=== PATIENT | female | born 1975 | race Caucasian/White ===

== ENCOUNTER → 2016-09-11 | Outpatient (REF) | payer OTHER ==
[2016-09-11 18:49] LABS: MEAN CORPUSCULAR HEMOGLOBIN 24.1 pg (27.0-33.0); MEAN CORPUSCULAR HGB CONC 30.9 g/dl (32.0-36.5); MEAN CORPUSCULAR VOLUME 77.8 fl (80.0-96.0); RED CELL DISTRIBUTION WIDTH 16.7 % (11.5-14.5); WHITE BLOOD COUNT 10.6 K/mm3 (4.0-10.0)
[2016-09-11 19:11] LABS: ALBUMIN 3.4 GM/DL (3.2-5.2); ALBUMIN/GLOBULIN RATIO 1.03 (1.00-1.93); ALKALINE PHOSPHATASE 74 U/L (45-117); ALT/SGPT 18 U/L (12-78); ANION GAP 9 MEQ/L (8-16); AST/SGOT 10 U/L (15-37); BILIRUBIN,TOTAL 0.2 MG/DL (0.2-1.0); BLOOD UREA NITROGEN 13 MG/DL (7-18); CALCIUM LEVEL 8.4 MG/DL (8.5-10.1); CARBON DIOXIDE LEVEL 25 MEQ/L (21-32); CHLORIDE LEVEL 107 MEQ/L (98-107); CHOLESTEROL LEVEL 195 MG/DL (<200); CREATININE FOR GFR 0.86 MG/DL (0.55-1.02); FREE T4 1.09 NG/DL (0.76-1.46); GLOMERULAR FILTRATION RATE > 60.0 (>58); GLUCOSE, FASTING 92 MG/DL (70-105); POTASSIUM SERUM 4.3 MEQ/L (3.5-5.1); SODIUM LEVEL 141 MEQ/L (136-145); TOTAL PROTEIN 6.7 GM/DL (6.4-8.2); TRIGLYCERIDES LEVEL 181 MG/DL (<150)
== END ==
LOC: M LABDRAW1 17:05
PROVIDERS: ATTEND Nurse Practitioner Family
DX: E55.9 Vitamin D deficiency, unspecified (principal); E78.5 Hyperlipidemia, unspecified; E03.9 Hypothyroidism, unspecified

== ENCOUNTER → 2016-09-27 | Outpatient (REF) | payer OTHER ==
[2016-09-27 19:48] LABS: MEAN CORPUSCULAR HEMOGLOBIN 23.8 pg (27.0-33.0); MEAN CORPUSCULAR HGB CONC 30.2 g/dl (32.0-36.5); MEAN CORPUSCULAR VOLUME 78.6 fl (80.0-96.0); RED CELL DISTRIBUTION WIDTH 16.1 % (11.5-14.5); WHITE BLOOD COUNT 9.5 K/mm3 (4.0-10.0)
== END ==
LOC: M LABDRAW1 17:40
PROVIDERS: ATTEND Nurse Practitioner Family
DX: D64.9 Anemia, unspecified (principal)

== ENCOUNTER → 2016-11-30 | Outpatient (REF) | payer OTHER | LOC: M LAB REF 12:00 | PROVIDERS: ATTEND Obstetrics & Gynecology | DX: N93.9 Abnormal uterine and vaginal bleeding, unspecified (principal) ==

== ENCOUNTER → 2017-03-08 | Outpatient (REF) | payer OTHER ==
[2017-03-08 11:56] LABS: MEAN CORPUSCULAR HEMOGLOBIN 21.8 pg (27.0-33.0); MEAN CORPUSCULAR HGB CONC 29.4 g/dl (32.0-36.5); RED CELL DISTRIBUTION WIDTH 15.9 % (11.5-14.5); WHITE BLOOD COUNT 7.9 10^3/uL (4.0-10.0)
[2017-03-08 12:00] LABS: MEAN CORPUSCULAR VOLUME 73.9 fl (80.0-96.0)
[2017-03-08 13:06] LABS: ALBUMIN 3.5 GM/DL (3.2-5.2); ALBUMIN/GLOBULIN RATIO 0.97 (1.00-1.93); ALKALINE PHOSPHATASE 86 U/L (45-117); ALT/SGPT 14 U/L (12-78); ANION GAP 6 MEQ/L (8-16); AST/SGOT 7 U/L (15-37); BILIRUBIN,TOTAL 0.3 MG/DL (0.2-1.0); BLOOD UREA NITROGEN 12 MG/DL (7-18); CALCIUM LEVEL 8.2 MG/DL (8.5-10.1); CARBON DIOXIDE LEVEL 27 MEQ/L (21-32); CHLORIDE LEVEL 106 MEQ/L (98-107); CHOLESTEROL LEVEL 180 MG/DL (<200); CREATININE FOR GFR 0.75 MG/DL (0.55-1.02); FREE T4 1.07 NG/DL (0.76-1.46); GLOMERULAR FILTRATION RATE > 60.0 (>58); GLUCOSE, FASTING 114 MG/DL (70-105); POTASSIUM SERUM 4.2 MEQ/L (3.5-5.1); SODIUM LEVEL 139 MEQ/L (136-145); TOTAL PROTEIN 7.1 GM/DL (6.4-8.2); TRIGLYCERIDES LEVEL 96 MG/DL (<150)
== END ==
LOC: M LABDRAW1 10:36
PROVIDERS: ATTEND Nurse Practitioner Family
DX: I10 Essential (primary) hypertension (principal)

== ENCOUNTER → 2017-03-22 | Outpatient (REF) | payer OTHER | LOC: M LAB REF 17:54 | PROVIDERS: ATTEND Obstetrics & Gynecology | DX: Z12.4 Encounter for screening for malignant neoplasm of cervix (principal) ==

== ENCOUNTER → 2017-07-03 | Outpatient (REF) | payer OTHER ==
[2017-07-03 12:30] LABS: HEMOGLOBIN 13.7 g/dl (12.0-16.0); MEAN CORPUSCULAR HEMOGLOBIN 26.1 pg (27.0-33.0); MEAN CORPUSCULAR HGB CONC 31.9 g/dl (32.0-36.5); MEAN CORPUSCULAR VOLUME 82.1 fl (80.0-96.0); PLATELET COUNT, AUTOMATED 401 10^3/uL (150-450); RED BLOOD COUNT 5.24 10^6/uL (4.00-5.40); RED CELL DISTRIBUTION WIDTH 15.9 % (11.5-14.5); WHITE BLOOD COUNT 8.9 10^3/uL (4.0-10.0)
[2017-07-03 13:06] LABS: ALBUMIN 3.9 GM/DL (3.2-5.2); ALBUMIN/GLOBULIN RATIO 1.08 (1.00-1.93); ALKALINE PHOSPHATASE 90 U/L (45-117); ALT/SGPT 19 U/L (12-78); ANION GAP 7 MEQ/L (8-16); AST/SGOT 13 U/L (7-37); BILIRUBIN,DIRECT < 0.1 MG/DL (0.0-0.2); BILIRUBIN,TOTAL 0.2 MG/DL (0.2-1.0); BLOOD UREA NITROGEN 14 MG/DL (7-18); CALCIUM LEVEL 8.7 MG/DL (8.5-10.1); CARBON DIOXIDE LEVEL 25 MEQ/L (21-32); CHLORIDE LEVEL 107 MEQ/L (98-107); CHOLESTEROL LEVEL 184 MG/DL (<200); CHOLESTEROL RISK RATIO 4.279 (<5); CPK CREATINE PHOSPHOKINASE 78 U/L (26-192); CREATININE FOR GFR 0.71 MG/DL (0.55-1.30); FREE T4 0.97 NG/DL (0.76-1.46); GLOMERULAR FILTRATION RATE > 60.0 (>58); GLUCOSE, FASTING 102 MG/DL (70-100); HDL CHOLESTEROL 43 MG/DL (>40); LDL CHOLESTEROL 95.6 MG/DL (<100); NON-HDL-C 141 MG/DL; POTASSIUM SERUM 4.7 MEQ/L (3.5-5.1); SODIUM LEVEL 139 MEQ/L (136-145); TOTAL PROTEIN 7.5 GM/DL (6.4-8.2); TRIGLYCERIDES LEVEL 227 MG/DL (<150)
== END ==
LOC: M LAB REF 11:55
DX: I10 Essential (primary) hypertension (principal); E03.9 Hypothyroidism, unspecified; D64.9 Anemia, unspecified

== ENCOUNTER → 2017-12-17 | Outpatient (CLI) | payer OTHER | LOC: M RAD 17:05 | DX: N93.9 Abnormal uterine and vaginal bleeding, unspecified (principal); D25.2 Subserosal leiomyoma of uterus; Z97.5 Presence of (intrauterine) contraceptive device | CPT/HCPCS: 76856 ==

== ENCOUNTER → 2017-12-26 | Outpatient (REF) | payer OTHER ==
[2017-12-26 15:32] LABS: HEMATOCRIT 41.5 % (36.0-47.0); HEMOGLOBIN 13.4 g/dl (12.0-15.5); MEAN CORPUSCULAR HEMOGLOBIN 27.7 pg (27.0-33.0); MEAN CORPUSCULAR HGB CONC 32.3 g/dl (32.0-36.5); MEAN CORPUSCULAR VOLUME 85.9 fl (80.0-96.0); PLATELET COUNT, AUTOMATED 362 10^3/uL (150-450); RED BLOOD COUNT 4.83 10^6/uL (4.00-5.40); RED CELL DISTRIBUTION WIDTH 13.6 % (11.5-14.5); WHITE BLOOD COUNT 9.3 10^3/uL (4.0-10.0)
[2017-12-26 15:52] LABS: ALBUMIN 3.3 GM/DL (3.2-5.2); ALBUMIN/GLOBULIN RATIO 0.89 (1.00-1.93); ALKALINE PHOSPHATASE 76 U/L (45-117); ALT/SGPT 15 U/L (12-78); ANION GAP 5 MEQ/L (8-16); AST/SGOT 7 U/L (7-37); BILIRUBIN,TOTAL 0.3 MG/DL (0.2-1.0); BLOOD UREA NITROGEN 12 MG/DL (7-18); CALCIUM LEVEL 8.1 MG/DL (8.5-10.1); CARBON DIOXIDE LEVEL 28 MEQ/L (21-32); CHLORIDE LEVEL 108 MEQ/L (98-107); CHOLESTEROL LEVEL 174 MG/DL (<200); CHOLESTEROL RISK RATIO 3.222 (<5); CPK CREATINE PHOSPHOKINASE 54 U/L (26-192); CREATININE FOR GFR 0.72 MG/DL (0.55-1.30); FREE T4 0.95 NG/DL (0.76-1.46); GLOMERULAR FILTRATION RATE > 60.0 (>58); GLUCOSE, FASTING 91 MG/DL (70-100); HDL CHOLESTEROL 54 MG/DL (>40); LDL CHOLESTEROL 100.8 MG/DL (<100); NON-HDL-C 120 MG/DL; POTASSIUM SERUM 4.5 MEQ/L (3.5-5.1); SODIUM LEVEL 141 MEQ/L (136-145); TRIGLYCERIDES LEVEL 96 MG/DL (<150)
== END ==
LOC: M LABDRAW1 11:44
DX: E78.00 Pure hypercholesterolemia, unspecified (principal); E03.9 Hypothyroidism, unspecified; I10 Essential (primary) hypertension

== ENCOUNTER 2018-02-13 15:49 | Emergency (ER) | payer OTHER | END 2018-02-13 18:15 | disposition left against medical advice (07) | LOC: M ED 15:49 | DX: J34.89 Other specified disorders of nose and nasal sinuses (principal); I10 Essential (primary) hypertension; E05.90 Thyrotoxicosis, unspecified without thyrotoxic crisis or storm; Z79.899 Other long term (current) drug therapy; Z91.030 Bee allergy status; Z53.21 Procedure and treatment not carried out due to patient leaving prior to being seen by health care provider | CPT/HCPCS: 99282 ==

== ENCOUNTER → 2018-03-29 | Outpatient (REF) | payer OTHER ==
[2018-03-29 14:01] LABS: HEMOGLOBIN 14.1 g/dl (12.0-15.5); MEAN CORPUSCULAR HEMOGLOBIN 27.3 pg (27.0-33.0); MEAN CORPUSCULAR VOLUME 85.1 fl (80.0-96.0); PLATELET COUNT, AUTOMATED 452 10^3/uL (150-450); RED BLOOD COUNT 5.17 10^6/uL (4.00-5.40); RED CELL DISTRIBUTION WIDTH 14.4 % (11.5-14.5); WHITE BLOOD COUNT 8.9 10^3/uL (4.0-10.0)
[2018-03-29 15:41] LABS: ALBUMIN 3.9 GM/DL (3.2-5.2); ALBUMIN/GLOBULIN RATIO 1.15 (1.00-1.93); ALKALINE PHOSPHATASE 78 U/L (45-117); ALT/SGPT 14 U/L (12-78); ANION GAP 9 MEQ/L (8-16); AST/SGOT 9 U/L (7-37); BILIRUBIN,TOTAL 0.4 MG/DL (0.2-1.0); BLOOD UREA NITROGEN 14 MG/DL (7-18); CALCIUM LEVEL 8.9 MG/DL (8.5-10.1); CARBON DIOXIDE LEVEL 25 MEQ/L (21-32); CHLORIDE LEVEL 105 MEQ/L (98-107); CHOLESTEROL LEVEL 186 MG/DL (<200); CHOLESTEROL RISK RATIO 4.325 (<5); CPK CREATINE PHOSPHOKINASE 50 U/L (26-192); FREE T4 1.09 NG/DL (0.76-1.46); GLOMERULAR FILTRATION RATE > 60.0 (>58); GLUCOSE, FASTING 102 MG/DL (70-100); HDL CHOLESTEROL 43 MG/DL (>40); LDL CHOLESTEROL 110 MG/DL (<100); NON-HDL-C 143 MG/DL; POTASSIUM SERUM 4.5 MEQ/L (3.5-5.1); RHEUMATOID FACTOR QUANT < 10.0 IU/ML (<15.0); SODIUM LEVEL 139 MEQ/L (136-145); TOTAL PROTEIN 7.3 GM/DL (6.4-8.2); TRIGLYCERIDES LEVEL 166 MG/DL (<150)
[2018-03-30 14:10] LABS: ANTINUCLEAR ANTIBODIES DIRECT Negative (Negative)
== END ==
LOC: M LABDRAW1 13:35
DX: I10 Essential (primary) hypertension (principal); E78.5 Hyperlipidemia, unspecified

== ENCOUNTER 2018-04-12 07:08 | Day surgery (SDC) | payer OTHER ==
[2018-04-12] MEDS: LR 1,000 ML IV ×4 (07:30→20:12)
[2018-04-12 07:46] LABS: HEMATOCRIT 43.3 % (36.0-47.0); MEAN CORPUSCULAR HEMOGLOBIN 27.5 pg (27.0-33.0); MEAN CORPUSCULAR HGB CONC 32.3 g/dl (32.0-36.5); MEAN CORPUSCULAR VOLUME 84.9 fl (80.0-96.0); PLATELET COUNT, AUTOMATED 411 10^3/uL (150-450); RED CELL DISTRIBUTION WIDTH 14.1 % (11.5-14.5); WHITE BLOOD COUNT 10.8 10^3/uL (4.0-10.0)
[2018-04-12 08:16] LABS: CONTROL LINE HCG INT CTR LINE PRESENT; HCG, SERUM QUALITATIVE NEGATIVE (NEGATIVE)
[2018-04-12] MEDS: OLMESARTAN MEDOXOMIL 20 MG TAB (BENICAR) PO (09:00)
[2018-04-12] MEDS ORDERED: dexameTHASONE 4 MG/ML 1ML VIAL (J1100) As Ordered (09:30)
[2018-04-12] MEDS ORDERED: LIDOCAINE 2% INJ 100 MG/5 ML SDV (FOR ANES.) As Ordered (09:30)
[2018-04-12] MEDS ORDERED: KETOROLAC 60 MG/2 ML VIAL (J1885) As Ordered (09:30)
[2018-04-12] MEDS ORDERED: MIDAZOLAM INJ 2 MG/2 ML VIAL (J2250) As Ordered (09:30)
[2018-04-12] MEDS ORDERED: PROPOFOL 200 MG/20 ML VIAL As Ordered ×2 (09:30→12:01)
[2018-04-12] MEDS ORDERED: ONDANSETRON 4MG/2ML VIAL (J2405) As Ordered (09:30)
[2018-04-12] MEDS ORDERED: fentaNYL 250 MCG/5 ML INJECTION (J3010) As Ordered (09:30)
[2018-04-12] MEDS ORDERED: ROCURONIUM BROMIDE 50 MG/5 ML VIAL As Ordered ×2 (09:30→10:52)
[2018-04-12] MEDS ORDERED: HYDROmorphone HCL 2 MG/ML 1ML VIAL (J1170) As Ordered (09:30)
[2018-04-12] MEDS ORDERED: GLYCOPYRROLATE INJ 0.2 MG/ML 2 ML VIAL As Ordered ×3 (10:57→10:58)
[2018-04-12] MEDS ORDERED: NEOSTIGMINE 10 MG/10 ML VIAL (J2710) As Ordered (10:57)
[2018-04-12] MEDS: METHYLENE BLUE 0.5% (5MG/ML) 10 ML AMP (PROVAYBLUE)(Q9968 PER 1MG) As Ordered (11:14)
[2018-04-12] MEDS: BUPIVACAINE HCL 0.25% 30 ML VIAL As Ordered (12:02)
[2018-04-12] MEDS: SILVER NITRATE APPLICATOR As Ordered (12:03)
[2018-04-12] MEDS ORDERED: ceFAZolin 1GM INJ (J0690 PER 500MG) As Ordered (12:14)
[2018-04-12] MEDS ORDERED: PERCOCET 5MG/325MG TAB PO (12:15)
[2018-04-12] MEDS ORDERED: PROMETHAZINE INJ 25 MG/ML VIAL (J2550) IV (12:15)
[2018-04-12] MEDS ORDERED: ONDANSETRON 4MG/2ML VIAL (J2405) IV (12:15)
[2018-04-12] MEDS ORDERED: fentaNYL 100 MCG/2 ML INJECTION (J3010) IV (13:00)
[2018-04-12] MEDS: ONDANSETRON 4MG/2ML VIAL (J2405) IV (13:22)
[2018-04-12] MEDS: PERCOCET 5MG/325MG TAB PO ×2 (13:23→20:10)
[2018-04-12] MEDS: KETOROLAC 30 MG/ML VIAL (J1885) IV ×2 (17:49→23:39)
[2018-04-12] MEDS: DOCUSATE SODIUM 100 MG CAP PO (20:47)
[2018-04-13] MEDS: PERCOCET 5MG/325MG TAB PO ×3 (04:05→13:10)
[2018-04-13] MEDS: LR 1,000 ML IV (04:12)
[2018-04-13] MEDS: KETOROLAC 30 MG/ML VIAL (J1885) IV (04:57)
[2018-04-13] MEDS: LEVOTHYROXINE 50MCG TABLET (0.05MG) PO (06:45)
[2018-04-13 07:10] LABS: BASO % 0.2 % (0.0-1.0); HEMATOCRIT 36.2 % (36.0-47.0); IMMATURE GRANULOCYTE % 0.8 % (0-3.0); LYMPH # 2.3 10^3/uL (1.5-4.5); MEAN CORPUSCULAR HEMOGLOBIN 27.2 pg (27.0-33.0); MEAN CORPUSCULAR HGB CONC 31.5 g/dl (32.0-36.5); MEAN CORPUSCULAR VOLUME 86.4 fl (80.0-96.0); MONO % 8.1 % (0.0-5.0); NEUTROPHILS # 9.3 10^3/uL (1.8-7.7); NEUTROPHILS % 72.9 % (36.0-66.0); PLATELET COUNT, AUTOMATED 326 10^3/uL (150-450); RED BLOOD COUNT 4.19 10^6/uL (4.00-5.40); RED CELL DISTRIBUTION WIDTH 14.4 % (11.5-14.5); WHITE BLOOD COUNT 12.7 10^3/uL (4.0-10.0)
[2018-04-13 07:16] LABS: HEMOGLOBIN 11.4 g/dl (12.0-15.5)
[2018-04-13] MEDS: DOCUSATE SODIUM 100 MG CAP PO (08:22)
[2018-04-13] MEDS ORDERED: OLMESARTAN MEDOXOMIL 20 MG TAB (BENICAR) PO (09:00)
[2018-04-13] MEDS: OLMESARTAN MEDOXOMIL 20 MG TAB (BENICAR) PO (10:18)
[2018-04-13] MEDS: SERTRALINE HCL 50 MG TAB PO (10:19)
[2018-04-13] MEDS: IBUPROFEN 800 MG TAB PO (13:10)
== END 2018-04-13 13:55 | disposition home or self-care (01) ==
LOC: M SDC 07:08 → M PED 14:40
DX: N93.9 Abnormal uterine and vaginal bleeding, unspecified (principal); D25.1 Intramural leiomyoma of uterus; N83.201 Unspecified ovarian cyst, right side; N72 Inflammatory disease of cervix uteri; N80.0 Endometriosis of uterus; I10 Essential (primary) hypertension; E03.9 Hypothyroidism, unspecified; F41.9 Anxiety disorder, unspecified; N32.81 Overactive bladder; Z91.030 Bee allergy status; Z79.899 Other long term (current) drug therapy; Z98.51 Tubal ligation status
CPT/HCPCS: 58571

== ENCOUNTER 2018-09-22 01:12 | Emergency (ER) | payer OTHER ==
[~2018-09-22] VITALS: Ht 152.4 cm; Wt 104.5 kg
[~2018-09-22 01:12] MED LIST: BENI40TA26 PO; COLA100C5 PO; DETR4CAP PO; EPIN0.3I11; IBUP80TA PO; LEVO50TA5 PO; OLME40TA; PERCOCET PO; SERT-155; TOLT2CAP4; ZOFR4TAB14 SL; ZOLO50TA PO
[2018-09-22] MEDS ORDERED: AMLO5TAB6 (01:22)
[2018-09-22] MEDS ORDERED: TOLT4CAP3 (01:22)
[2018-09-22 02:16] LABS: INFLUENZA A AMPLIFICATION NEGATIVE (NEGATIVE); INFLUENZA B AMPLIFICATION NEGATIVE (NEGATIVE)
[2018-09-22 03:58] VITALS: BP 135/79
[2018-09-22] MEDS ORDERED: PRED20TA PO (05:37)
[2018-09-22] MEDS ORDERED: TESS100C PO (05:37)
[2018-09-22] MEDS ORDERED: ALBUTEROL 90 MCG/ACT 8GM HFA INHALER INH ONE (05:45)
[2018-09-22] MEDS ORDERED: BENZONATATE 100 MG CAP PO ONE (05:45)
[2018-09-22] MEDS ORDERED: predniSONE 20 MG TAB PO ONE (05:45)
--- NOTE | 2018-09-22 09:55 | REP ---
Cough. PRIORS: Multiple, latest 03/29/2018. FINDINGS: The superior mediastinal structures are midline. The cardiac silhouette is unremarkable in size, shape, and position. The diaphragmatic surfaces of the lungs are regular, and the costophrenic angles are clear. The pulmonary al are clear. The imaged osseous structures are intact. IMPRESSION: There is no acute cardiopulmonary disease. Electronically Signed by Isaac Fleming DO 09/22/2018 01:48 P
== END 2018-09-22 06:01 | disposition home or self-care (01) ==
LOC: M ED 01:12
DX: J20.9 Acute bronchitis, unspecified (principal); Z87.09 Personal history of other diseases of the respiratory system; Z91.030 Bee allergy status; Z79.899 Other long term (current) drug therapy; Z79.890 Hormone replacement therapy

== ENCOUNTER → 2019-02-27 | Outpatient (CLI) | payer OTHER, MEDICAID ==
[~2019-02-27] MED LIST changes: +AMLO5TAB6; +OMEP10CASR PO; +PRED20TA PO; -SERT-155; +SERT50TA29; +TESS100C PO; +TOLT4CAP3
[2019-02-27 10:44] LABS: BASO # 0.1 10^3/uL (0.0-0.2); BASO % 0.6 % (0.0-1.0); EOS # 0.2 10^3/uL (0.0-0.5); EOS % 3.1 % (0.0-3.0); HEMATOCRIT 42.3 % (36.0-47.0); HEMOGLOBIN 13.6 g/dl (12.0-15.5); LYMPH # 2.1 10^3/uL (1.5-5.0); MEAN CORPUSCULAR HEMOGLOBIN 27.6 pg (27.0-33.0); MEAN CORPUSCULAR HGB CONC 32.2 g/dl (32.0-36.5); MEAN CORPUSCULAR VOLUME 85.8 fl (80.0-96.0); MONO # 0.7 10^3/uL (0.0-0.8); MONO % 8.8 % (0.0-5.0); NEUTROPHILS # 4.6 10^3/uL (1.5-8.5); NEUTROPHILS % 58.8 % (36.0-66.0); PLATELET COUNT, AUTOMATED 390 10^3/uL (150-450); RED BLOOD COUNT 4.93 10^6/uL (4.00-5.40); WHITE BLOOD COUNT 7.9 10^3/uL (4.0-10.0)
[2019-02-27 11:20] LABS: ALBUMIN 3.5 GM/DL (3.2-5.2); ALT/SGPT 254 U/L (12-78); AMYLASE 32 U/L (25-115); BILIRUBIN,TOTAL 0.6 MG/DL (0.2-1.0); BLOOD UREA NITROGEN 21 MG/DL (7-18); CALCIUM LEVEL 8.6 MG/DL (8.5-10.1); CARBON DIOXIDE LEVEL 27 MEQ/L (21-32); CHLORIDE LEVEL 108 MEQ/L (98-107); CHOLESTEROL LEVEL 186 MG/DL (<200); CHOLESTEROL RISK RATIO 3.206 (<5); CREATININE FOR GFR 0.86 MG/DL (0.55-1.30); FREE T4 1.04 NG/DL (0.76-1.46); GLOMERULAR FILTRATION RATE > 60.0 (>58); GLUCOSE, FASTING 105 MG/DL (70-100); HDL CHOLESTEROL 58 MG/DL (>40); IMMUNOGLOBULIN G 1160 MG/DL (681-1648); LDL CHOLESTEROL 105 MG/DL (<100); LIPASE 86 U/L (73-393); NON-HDL-C 128 MG/DL; POTASSIUM SERUM 4.5 MEQ/L (3.5-5.1); SODIUM LEVEL 140 MEQ/L (136-145); TOTAL 25(OH) VITAMIN D 23.8 NG/ML (30.0-100.0); TOTAL PROTEIN 7.1 GM/DL (6.4-8.2); TRIGLYCERIDES LEVEL 117 MG/DL (<150)
[2019-02-27 13:02] LABS: HEMOGLOBIN A1c 5.8 %
== END ==
LOC: M LAB 09:40
PROVIDERS: ATTEND Nurse Practitioner Family
DX: Z00.01 Encounter for general adult medical examination with abnormal findings (principal); R10.9 Unspecified abdominal pain

== ENCOUNTER → 2019-03-10 | Outpatient (REF) | payer OTHER, MEDICAID ==
[~2019-03-10] MED LIST changes: -OMEP10CASR PO
[2019-03-10 18:55] LABS: APPEARANCE, URINE HAZY (CLEAR); BACTERIA, URINE AUTO NEGATIVE (NEGATIVE); BILIRUBIN, URINE AUTO NEGATIVE (NEGATIVE); BLOOD, URINE BLOOD NEGATIVE (NEGATIVE); COLOR, URINE YELLOW (YELLOW); GLUCOSE, URINE (UA) AUTO NEGATIVE (NEGATIVE); KETONE, URINE AUTO NEGATIVE (NEGATIVE); LEUKOCYTE ESTERASE, URINE AUTO NEGATIVE (NEGATIVE); NITRITE, URINE AUTO NEGATIVE (NEGATIVE); PROTEIN, URINE AUTO NEGATIVE (NEGATIVE); RBC, URINE AUTO 0 /HPF (0-3); SPECIFIC GRAVITY URINE AUTO 1.017 (1.002-1.035); SQUAMOUS EPITHELIAL CELL UR AU 2 /HPF (0-6); UROBILINOGEN, URINE AUTO 0.2 mg/dL (0.0-2.0); WBC, URINE AUTO 2 /HPF (0-3)
== END ==
LOC: M SMT 17:25
PROVIDERS: ATTEND Nurse Practitioner Women's Health
DX: R39.15 Urgency of urination (principal)
CPT/HCPCS: 81001; 87086; G0463

== ENCOUNTER → 2019-03-12 | Outpatient (CLI) | payer OTHER, MEDICAID ==
[~2019-03-12] MED LIST changes: +E-Z-GAS II EFFERVESCENT PACKET (SODIUM BICARB./CITRIC ACID/SIMETHICONE) As Ordered ONE; +E-Z-HD 98% w/w 340GM SUSP BTL As Ordered ONE; +E-Z-PAQUE 96% w/w SUSP 176GM BTL As Ordered ONE
--- NOTE | 2019-03-12 16:16 | REP ---
Upper GI air contrast The procedure was performed under the direct supervision of Dr. Cabrera. The images were reviewed with Dr. Cabrera The manager automotive film shows no organomegaly or pathological masses. The intestinal gas pattern is non-specific. Liquid barium and gas producing crystals were given in the erect position as well as liquid barium in the prone oblique position in order to perform a double contrast upper GI examination. The oral and pharyngeal stages of deglutition are unremarkable. Esophageal transport is prompt and efficient and there is no esophagitis, stricture, mucosal ring or hiatal hernia. There is gastroesophageal reflux demonstrated to above the level of the nick. The stomach whipple are normally outlined . The rugal folds are smooth and regular. There is no gastritis neoplasm or ulcer disease. The duodenal whipple are normally outlined . The mucosal folds are smooth and regular. There is no duodenitis pancreatitis peptic ulcer disease or neoplasm. The visualized portion of the proximal small bowel appears normal in course and caliber. Impression: There is gastroesophageal reflux demonstrated to above the level of the nick. Otherwise, unremarkable double contrast upper GI examination. 0.9 minutes of fluoro time was utilized for this procedure. Electronically Signed by KEISHA Cai 03/12/2019 03:54 P Electronically Signed by Niko Cabrera MD 03/12/2019 04:06 P
== END ==
LOC: M RAD 08:01
PROVIDERS: ATTEND Nurse Practitioner Family
DX: R10.9 Unspecified abdominal pain (principal)

== ENCOUNTER → 2019-04-01 | Outpatient (REF) | payer OTHER, MEDICAID ==
[~2019-04-01] MED LIST changes: -E-Z-GAS II EFFERVESCENT PACKET (SODIUM BICARB./CITRIC ACID/SIMETHICONE) As Ordered ONE; -E-Z-HD 98% w/w 340GM SUSP BTL As Ordered ONE; -E-Z-PAQUE 96% w/w SUSP 176GM BTL As Ordered ONE
[2019-04-01 18:13] LABS: ALBUMIN 3.6 GM/DL (3.2-5.2); ALT/SGPT 19 U/L (12-78); BILIRUBIN,TOTAL 0.3 MG/DL (0.2-1.0); BLOOD UREA NITROGEN 11 MG/DL (7-18); CALCIUM LEVEL 8.8 MG/DL (8.5-10.1); CARBON DIOXIDE LEVEL 26 MEQ/L (21-32); CHLORIDE LEVEL 108 MEQ/L (98-107); CREATININE FOR GFR 0.76 MG/DL (0.55-1.30); GLOMERULAR FILTRATION RATE > 60.0 (>58); GLUCOSE, FASTING 82 MG/DL (70-100); POTASSIUM SERUM 4.1 MEQ/L (3.5-5.1); SODIUM LEVEL 140 MEQ/L (136-145); TOTAL PROTEIN 7.3 GM/DL (6.4-8.2)
== END ==
LOC: M LAB REF 16:21
PROVIDERS: ATTEND Nurse Practitioner Family
DX: R94.5 Abnormal results of liver function studies (principal)

== ENCOUNTER 2019-05-27 22:08 | Emergency (ER) | payer OTHER, MEDICAID ==
[~2019-05-27] VITALS: Ht 152.4 cm; Wt 100.0 kg
[2019-05-27] MEDS ORDERED: KETOROLAC 60 MG/2 ML VIAL (J1885) IM ONE (22:15)
[2019-05-27] MEDS ORDERED: PERCOCET 5MG/325MG TAB PO ONE (22:15)
[2019-05-27 22:24] VITALS: BP 133/86
[2019-05-27] MEDS ORDERED: ZOLO50TA PO (22:31)
[2019-05-27] MEDS ORDERED: OMEP10CASR PO (22:31)
--- NOTE | 2019-05-27 23:53 | REP ---
Clinical: Trauma. Technique: AP, lateral, bilateral oblique views right wrist . Findings: The carpal bones, surrounding osseous structures, soft tissues, and joint spaces are normal. There is no evidence for acute fracture or dislocation. No subcutaneous emphysema or radiodense foreign body. Impression: No acute fracture or dislocation Electronically Signed by Ezio Ramirez MD 05/27/2019 11:45 P
--- NOTE | 2019-05-27 23:55 | REP ---
Clinical: Trauma. Technique: AP, lateral, bilateral oblique views right hand . Findings: The osseous structures and joint spaces are intact and normal. There is no evidence for acute fracture or dislocation. Surrounding soft tissues are unremarkable. No subcutaneous emphysema or radiodense foreign body. Impression: No acute fracture or dislocation. Electronically Signed by Ezio Ramirez MD 05/27/2019 11:47 P
--- NOTE | 2019-05-27 23:56 | REP ---
Clinical: Trauma. Pain. Technique: AP and lateral views of the right forearm. Findings: No acute fracture dislocation. Skeletal structures, joint spaces, and surrounding soft tissues are normal. Impression: No acute fracture or dislocation. Electronically Signed by Ezio Ramirez MD 05/27/2019 11:48 P
== END 2019-05-27 23:21 | disposition home or self-care (01) ==
LOC: M ED 22:08
DX: S50.11XA Contusion of right forearm, initial encounter (principal); S60.511A Abrasion of right hand, initial encounter; W18.39XA Other fall on same level, initial encounter; Y92.098 Other place in other non-institutional residence as the place of occurrence of the external cause; I10 Essential (primary) hypertension; F32.9 Major depressive disorder, single episode, unspecified; E03.9 Hypothyroidism, unspecified; Z91.030 Bee allergy status; Z79.899 Other long term (current) drug therapy
CPT/HCPCS: 73090; 73110; 73130; 96372; 99284; J1885

== ENCOUNTER → 2019-07-07 | Outpatient (REF) | payer OTHER, MEDICAID ==
[~2019-07-07] MED LIST changes: +OMEP10CASR PO
[2019-07-07 13:31] LABS: BASO # 0.1 10^3/uL (0.0-0.2); BASO % 0.5 % (0.0-1.0); EOS # 0.2 10^3/uL (0.0-0.5); HEMATOCRIT 43.7 % (36.0-47.0); HEMOGLOBIN 13.9 g/dl (12.0-15.5); LYMPH # 2.7 10^3/uL (1.5-5.0); LYMPH % 25.2 % (24.0-44.0); MEAN CORPUSCULAR HEMOGLOBIN 27.7 pg (27.0-33.0); MEAN CORPUSCULAR HGB CONC 31.8 g/dl (32.0-36.5); MEAN CORPUSCULAR VOLUME 87.1 fl (80.0-96.0); MONO # 0.9 10^3/uL (0.0-0.8); MONO % 8.2 % (0.0-5.0); NEUTROPHILS # 6.7 10^3/uL (1.5-8.5); NEUTROPHILS % 63.2 % (36.0-66.0); PLATELET COUNT, AUTOMATED 377 10^3/uL (150-450); RED BLOOD COUNT 5.02 10^6/uL (4.00-5.40); WHITE BLOOD COUNT 10.5 10^3/uL (4.0-10.0)
[2019-07-07 13:44] LABS: TOTAL 25(OH) VITAMIN D 24.6 NG/ML (30.0-100.0)
[2019-07-07 13:45] LABS: ALBUMIN 3.5 GM/DL (3.2-5.2); ALT/SGPT 15 U/L (12-78); BILIRUBIN,TOTAL 0.3 MG/DL (0.2-1.0); BLOOD UREA NITROGEN 20 MG/DL (7-18); CALCIUM LEVEL 8.7 MG/DL (8.5-10.1); CARBON DIOXIDE LEVEL 26 MEQ/L (21-32); CHLORIDE LEVEL 108 MEQ/L (98-107); CHOLESTEROL LEVEL 180 MG/DL (<200); CHOLESTEROL RISK RATIO 3.673 (<5); CREATININE FOR GFR 0.84 MG/DL (0.55-1.30); FREE T4 1.02 NG/DL (0.76-1.46); GLOMERULAR FILTRATION RATE > 60.0 (>58); GLUCOSE, FASTING 115 MG/DL (70-100); HDL CHOLESTEROL 49 MG/DL (>40); LDL CHOLESTEROL 98 MG/DL (<100); NON-HDL-C 131 MG/DL; POTASSIUM SERUM 4.4 MEQ/L (3.5-5.1); SODIUM LEVEL 140 MEQ/L (136-145); TOTAL PROTEIN 7.2 GM/DL (6.4-8.2); TRIGLYCERIDES LEVEL 166 MG/DL (<150)
[2019-07-09 00:08] LABS: Lyme Disease IgG/IgM Antibodie <0.91 ISR (0.00-0.90); Lyme Disease IgM Ab Quantitati <0.80 index (0.00-0.79)
== END ==
LOC: M LAB REF 12:19
PROVIDERS: ATTEND Family Medicine
DX: M25.50 Pain in unspecified joint (principal); Z13.228 Encounter for screening for other metabolic disorders; E03.9 Hypothyroidism, unspecified

== ENCOUNTER 2019-07-12 07:32 | Inpatient (IN) | payer OTHER, MEDICAID ==
[~2019-07-12] VITALS: Ht 152.4 cm; Wt 118.3 kg
[~2019-07-12 07:32] MED LIST changes: -AMLO5TAB6; +AMLO5TAB6 PO; -EPIN0.3I11; +EPIN0.3I11 IM
[2019-07-12] MEDS ORDERED: OMEP-218 PO (07:39)
[2019-07-12] MEDS ORDERED: NS 1,000 ML IV ONE (08:15)
[2019-07-12 08:17] LABS: BASO # 0.1 10^3/uL (0.0-0.2); BASO % 0.8 % (0.0-1.0); EOS # 0.3 10^3/uL (0.0-0.5); EOS % 3.9 % (0.0-3.0); HEMATOCRIT 46.7 % (36.0-47.0); HEMOGLOBIN 14.6 g/dl (12.0-15.5); LYMPH # 1.7 10^3/uL (1.5-5.0); LYMPH % 22.7 % (24.0-44.0); MEAN CORPUSCULAR HEMOGLOBIN 27.1 pg (27.0-33.0); MEAN CORPUSCULAR HGB CONC 31.3 g/dl (32.0-36.5); MEAN CORPUSCULAR VOLUME 86.8 fl (80.0-96.0); MONO # 0.7 10^3/uL (0.0-0.8); MONO % 9.3 % (0.0-5.0); NEUTROPHILS # 4.7 10^3/uL (1.5-8.5); NEUTROPHILS % 61.3 % (36.0-66.0); PLATELET COUNT, AUTOMATED 376 10^3/uL (150-450); RED BLOOD COUNT 5.38 10^6/uL (4.00-5.40); WHITE BLOOD COUNT 7.6 10^3/uL (4.0-10.0)
[2019-07-12 08:49] LABS: ALBUMIN 3.6 GM/DL (3.2-5.2); ALT/SGPT 281 U/L (12-78); BILIRUBIN,DIRECT 3.6 MG/DL (0.0-0.2); BILIRUBIN,TOTAL 4.3 MG/DL (0.2-1.0); BLOOD UREA NITROGEN 5 MG/DL (7-18); CALCIUM LEVEL 8.3 MG/DL (8.5-10.1); CARBON DIOXIDE LEVEL 23 MEQ/L (21-32); CHLORIDE LEVEL 109 MEQ/L (98-107); CREATININE FOR GFR 0.76 MG/DL (0.55-1.30); GLOMERULAR FILTRATION RATE > 60.0 (>58); GLUCOSE, FASTING 112 MG/DL (70-100); LIPASE 227 U/L (73-393); POTASSIUM SERUM 4.2 MEQ/L (3.5-5.1); SODIUM LEVEL 141 MEQ/L (136-145); TOTAL PROTEIN 7.2 GM/DL (6.4-8.2)
--- NOTE | 2019-07-12 09:13 | REP ---
Clinical: Acute right upper quadrant pain. Technique: Real time weinstein scale ultrasound examination using curved array transducer. Findings: Mild fatty infiltration to the liver suggested without focal hepatic lesion. Pancreas is incompletely evaluated due to interposed bowel gas but visualized portions appear normal. The gallbladder demonstrates small amount of layering gravel without wall thickening or pericholecystic fluid. Right kidney is normal in reniform shape without hydronephrosis and measures 11.7 x 6.1 x 5.1 cm. No ascites. Impression: 1. Minimal cholelithiasis without sonographic evidence for acute cholecystitis. 2. Hepatic steatosis. Electronically Signed by Ezio Ramirez MD 07/12/2019 09:05 A
[2019-07-12] MEDS ORDERED: KETOROLAC 30 MG/ML VIAL (J1885) IV ONE (09:15)
--- NOTE | 2019-07-12 09:43 | ECGEPIP ---
[facility] - ED Test Date: 2019-07-12 Pat Name: MIKEY SHINE Department: Room: - Gender: Female Program And Research Coordinator: : 1975 Requested By: LETICIA Dickey PA-C Order Number: [id number] Reading MD: Rafael Jackson Measurements Intervals [place] Rate: 78 P: 52 OR: 151 QRS: 10 QRSD: 109 T: 24 QT: 403 QTc: 461 Interpretive Statements SINUS RHYTHM POSSIBLE RIGHT VENTRICULAR CONDUCTION DELAY NONSPECIFIC ST T WAVE CHANGES PROLONGED QTC NO PRIOR ECG FOR COMPARISON Electronically Signed on 07-12-2019 9:43:12 EST by Rafael Jackson
--- NOTE | 2019-07-12 13:13 | REP ---
Clinical: Right upper quadrant pain. Technique: Standard noncontrast MRCP examination. Findings: The gallbladder demonstrates layering gravel without evidence for acute cholecystitis and there is no evidence for intrahepatic or extrahepatic biliary ductal dilatation or obvious choledocholithiasis. The visualized portions of the liver suggests hepatic steatosis and mild hepatomegaly measuring 21 cm craniocaudal length. Impression: 1. Cholelithiasis. 2. Hepatic steatosis and mild hepatomegaly. Electronically Signed by Ezio Ramirez MD 07/12/2019 01:05 P
[2019-07-12] MEDS: GASTROGRAFIN SOLUTION 30ML PO SCH ×2 (14:23→14:30)
[2019-07-12] MEDS ORDERED: SERT25TA85 PO (14:23)
[2019-07-12] MEDS ORDERED: IPRA6SP NARES (14:23)
[2019-07-12] MEDS ORDERED: ISOVUE-370 76% 100ML VIAL (Q9967) As Ordered ONE (15:41)
--- NOTE | 2019-07-12 16:12 | REP ---
Clinical: Right upper quadrant pain. Technique: Axial contrast enhanced images from the lung bases to the pubic symphysis using oral (per protocol) and 100 ml Isovue 370 intravenous contrast material with coronal and sagittal re-formations. Findings: Mild hepatomegaly and diffuse fatty infiltration to the liver noted. Spleen, pancreas, gallbladder, bilateral adrenal glands and kidneys are normal. The enteric system is without obstruction or acute inflammatory process. Normal terminal ileum and appendix identified in the right lower quadrant. Pelvis demonstrates normal bladder and evidence for prior hysterectomy. No ascites. No free air. No adenopathy. Abdominal aorta without aneurysm or dissection. Musculoskeletal structures are intact. Lung bases are clear. Impression: Hepatomegaly and hepatic steatosis. Electronically Signed by Ezio Ramirez MD 07/12/2019 04:03 P
[2019-07-12] MEDS ORDERED: ACETAMINOPHEN TAB 650MG DOSE (2X325MG) PO PRN (17:15)
[2019-07-12] MEDS ORDERED: PERCOCET 5MG/325MG TAB PO PRN (17:15)
[2019-07-12] MEDS ORDERED: IPRATROPIUM 0.06% NASAL SPRAY 15 ML (ATROVENT) PRN (17:15)
[2019-07-12 19:45] VITALS: BP 142/92
[2019-07-12] MEDS: SENOKOT S TAB PO SCH (20:03)
[2019-07-12] MEDS: ONDANSETRON 4MG/2ML VIAL (J2405) IV PRN (20:03)
[2019-07-12] MEDS: OMEPRAZOLE 20 MG CAP PO SCH (20:09)
[2019-07-12] MEDS: amLODIPine 5 MG TAB PO SCH (20:09)
[2019-07-12] MEDS: OLMESARTAN MEDOXOMIL 20 MG TAB (BENICAR) PO SCH (21:15)
[2019-07-13] VITALS (9 sets, daily range): BP systolic 123–145; BP diastolic 78–93
[2019-07-13] MEDS: LEVOTHYROXINE 50MCG TABLET (0.05MG) PO SCH (06:06)
[2019-07-13] MEDS: PERCOCET 5MG/325MG TAB PO PRN (06:07)
[2019-07-13 06:15] LABS: BASO # 0.1 10^3/uL (0.0-0.2); BASO % 0.7 % (0.0-1.0); EOS # 0.3 10^3/uL (0.0-0.5); EOS % 3.7 % (0.0-3.0); HEMATOCRIT 42.3 % (36.0-47.0); HEMOGLOBIN 13.3 g/dl (12.0-15.5); LYMPH % 21.9 % (24.0-44.0); MEAN CORPUSCULAR HEMOGLOBIN 27.2 pg (27.0-33.0); MEAN CORPUSCULAR HGB CONC 31.4 g/dl (32.0-36.5); MEAN CORPUSCULAR VOLUME 86.5 fl (80.0-96.0); MONO # 0.8 10^3/uL (0.0-0.8); MONO % 9.2 % (0.0-5.0); NEUTROPHILS # 5.6 10^3/uL (1.5-8.5); NEUTROPHILS % 62.3 % (36.0-66.0); PLATELET COUNT, AUTOMATED 316 10^3/uL (150-450); RED BLOOD COUNT 4.89 10^6/uL (4.00-5.40); WHITE BLOOD COUNT 8.9 10^3/uL (4.0-10.0)
[2019-07-13 06:31] LABS: ALT/SGPT 198 U/L (12-78); BILIRUBIN,DIRECT 1.4 MG/DL (0.0-0.2); BLOOD UREA NITROGEN 9 MG/DL (7-18); CALCIUM LEVEL 8.4 MG/DL (8.5-10.1); CARBON DIOXIDE LEVEL 25 MEQ/L (21-32); CHLORIDE LEVEL 109 MEQ/L (98-107); CREATININE FOR GFR 0.84 MG/DL (0.55-1.30); GLOMERULAR FILTRATION RATE > 60.0 (>58); GLUCOSE, FASTING 103 MG/DL (70-100); POTASSIUM SERUM 3.9 MEQ/L (3.5-5.1); SODIUM LEVEL 140 MEQ/L (136-145); TOTAL PROTEIN 6.9 GM/DL (6.4-8.2)
[2019-07-13] MEDS: SENOKOT S TAB PO SCH ×3 (09:00→20:09)
[2019-07-13] MEDS ORDERED: BUPIVACAINE HCL 0.25% 30 ML VIAL As Ordered ONE (09:14)
[2019-07-13] MEDS ORDERED: LIDOCAINE 1% SDV INJ 30 ML VIAL As Ordered ONE (09:14)
--- NOTE | 2019-07-13 09:18 | HPEPDOC ---
General Surgery H&P Date of Admission Jul 12, 2019 Attending Physician: TALI MCHUGH MD History and Physical CHIEF COMPLAINT: abdominal pain HISTORY OF PRESENT ILLNESS: Patient presented herself to the emergency room today with complaints of on and off pain for 1 year and worsening of the epigastric and right upper quadrant pain for the past 3 days associated with nausea but no vomiting, fevers or chills. She reports that she has been having this vague sometimes sharp epigastric and right upper quadrant discomfort that comes all of a sudden may last for a few minutes to a few hours. Pattern is not exactly post prandial but he does happen with fatty meals. She was also noted by her primary doctor to have a mildly elevated LFTs back in February. She had an upper GI series done and that shows reflux. Repeat upper LFTs normalize so no other workup has been done that time. She had liver function test done on July 08 which was normal. She comes in the emergency room industry day sharp epigastric pain and was noted in the emergency room to have abnormal liver function tests including obstructed pattern of hyperbilirubinemia with her bilirubin up to 4.3 with a predominant direct fraction of 3.6 and markedly elevated AST and ALT and alkaline phosphatase. She had extensive workup in the emergency room including an ultrasound of the gallbladder showing gallstones, an MRCP that did not reveal any common bile duct stones weren't obstructed pattern in the CT abdomen and pelvis which is also normal. She subsequently admitted to me for suspicion that she has been dropping stones from her gallbladder and transiently passing them through the biliary tree. At the time that I saw her she is receive a couple doses of pain medications and she seems comfortable. She has been afebrile. ALLERGIES: Please see below. HOME MEDICATIONS: Please see below. PAST MEDICAL HISTORY: 1. Morbid obesity with a BMI of 50.9 2. Hypertension 3. Asthma 4. Gastroesophageal reflux disease 5. Hypothyroidism 6. Anxiety PAST SURGICAL HISTORY: 1. Laparoscopic hysterectomy and unilateral salpingo-oophorectomy. 2. Tubal ligation 3. Left shoulder arthroscopy. PERSONAL/SOCIAL HISTORY: Patient denies smoking, daily alcohol use or recreational drug use. REVIEW OF SYSTEMS: GENERAL: As mentioned above. She denies weight loss. She has gained some weight recently. She denies fevers or chills. HEENT: Patient wears glasses but denies blurry vision, problems with hearing or with her voice. NECK: [Denies any neck pain]. CARDIOVASCULAR: [Denies chest pain and palpitations]. MUSCULOSKELETAL: Reports left shoulder surgery prior. SKIN: No skin rash. NEUROLOGIC: [Denies headache, stroke and transient ischemic attack]. PSYCHIATRIC: Reports mild anxiety for which she takes Zoloft. ENDOCRINE: Reports hypothyroidism but denies symptoms from this. HEMATOLOGY/ONCOLOGY: [Denies any bleeding or clotting disorder]. HEART: [Denies any chest pains, palpitations, paroxysmal dyspnea, orthopnea]. PULMONARY: Reports occasional shortness of breath and uses inhalers for this. GASTROINTESTINAL: See HPI. GENITOURINARY: [Denies dysuria, frequency, hematuria and nocturia]. ENDOCRINE: [Denies polydipsia, polyphagia, polyuria, heat or cold intolerance]. INFECTIOUS: [Denies any recent upper respiratory tract infection, UTI, need for use of antibiotics]. NUTRITION: Reports fair to poor appetite the past 3 days to the pain. PHYSICAL EXAMINATION: VITAL SIGNS: Please see below. GENERAL APPEARANCE: Patient's relatively comfortable at the time that I saw her. She is pleasant and cooperative. [Awake, alert, oriented]. HEENT: [Normocephalic, atraumatic. [place] palpebral conjunctivae. Slight hint of icteric sclerae]. CHEST: [No chest wall abnormalities. Normal respiratory motion/effort]. NECK: [Supple. No thyromegaly. No lymphadenopathies]. LUNGS: [Lung sounds are clear to auscultation bilaterally. No wheezing appreciated]. HEART: [No chest wall abnormalities. Heart rate and rhythm are regular with no murmurs]. ABDOMEN: Morbidly obese, rounded abdomen. Minimally tender to palpation over the right upper quadrant subcostal area without guarding. Previous port site incisions noted, no [place] herniations appreciated. SKIN: Warm and dry. EXTREMITIES: [Extremities have no deformities. No edema identified]. NEUROLOGICAL: Awake, alert, oriented . ANCILLARIES: . LABORATORY DATA: Please see below. She has a normal white cell count. Pertinent labs include total bilirubin of 4.3 with a direct fraction of 3.6. AST is 136 ALT is 281, alkaline phosphatase is 265 lipase is 227 which is normal. MICROBIOLOGY: Please see below. IMAGING: Ultrasound of the gallbladder shows hepatic steatosis with no focal hepatic lesi on. Presence of cholelithiasis without sonographic evidence for acute cholecystitis This was followed by an MRCP that did not demonstrate any evidence for intrahepatic or extrahepatic biliary ductal dilatation or obvious choledocholithiasis I had asked for a CT abdomen and pelvis to rule out a pancreatic or periampullary origin of the abnormal LFTs which did not show any evidence of. Only hepatomegaly and hepatic steatosis was noted. No evidence for ascites, free air. IMPRESSION AND PLAN: Abdominal pain and abnormal LFTs with an obstructive pattern of hyperbilirubinemia probably from transient passage of a gallstone through the biliary tree which is no longer present as evidenced by a normal MRCP. No other explanation for the elevated bilirubin that I could see. She had a normal CT abdomen and pelvis with no evidence of a periampullary or pancreatic tumor. She had a normal LFTs done on 07/07/2019 so I don't think this is of liver origin. So most likely hyperbilirubinemia will be transient. I will get her to the hospital and monitor this for now and most likely if no other etiology comes out we'll schedule her for laparoscopic cholecystectomy.. Vital Signs Vital Signs Date Time Temp Pulse Resp B/P (MAP) Pulse Ox O2 Delivery O2 Flow Rate FiO2 07/13/19 06:37 16 Room Air 07/13/19 06:00 98.0 74 123/81 (95) 98 I&Os I&O- Last 24 Hours up to 6 AM 07/13/19 05:59 Intake Total 1000 ml Output Total 100 ml Balance 900 ml Laboratory Data Labs 24H Laboratory Tests 2 07/13/19 05:44: Immature Granulocyte % (Auto) 2.2, Neutrophils (%) (Auto) 62.3, Lymphocytes (%) (Auto) 21.9L, Monocytes (%) (Auto) 9.2H, Eosinophils (%) (Auto) 3.7H, Basophils (%) (Auto) 0.7, Neutrophils # (Auto) 5.6, Lymphocytes # (Auto) 2.0, Monocytes # (Auto) 0.8, Eosinophils # (Auto) 0.3, Basophils # (Auto) 0.1, Nucleated Red Blood Cells % (auto) 0.0, Anion Gap 6L, Glomerular Filtration Rate > 60.0, Calcium Level 8.4L, Total Bilirubin 2.0#H, Direct Bilirubin 1.4H, Gamma Glutamyl Transferase 412H, Aspartate Amino Transf (AST/SGOT) 66H, Alanine Aminotransferase (ALT/SGPT) 198H, Alkaline Phosphatase 222H, Total Protein 6.9, Albumin 3.0L, Albumin/Globulin Ratio 0.77L CBC/BMP Laboratory Tests 07/13/19 05:44 Home Medications Scheduled Amlodipine Besylate (Amlodipine Besylate) 5 Mg Tablet, 5 MG PO DAILY, (Reported) Levothyroxine Sodium (Levothyroxine Sodium) 50 Mcg Tab, 50 MCG PO DAILY, (Reported) Olmesartan Medoxomil (Benicar) 40 Mg Tab, 40 MG PO DAILY, (Reported) Omeprazole (Omeprazole) 20 Mg Capsule.dr, 20 MG PO DAILY, (Reported) Sertraline Hcl (Zoloft) 50 Mg Tablet, 50 MG PO DAILY, (Reported) TAKEN WITH 25MG TAB. TOTAL OF 75MG Sertraline Hcl (Sertraline HCl) 25 Mg Tablet, 25 MG PO DAILY, (Reported) TAKEN WITH 50MG TAB. TOTAL OF 75MG Scheduled PRN Epinephrine (Epinephrine) 0.3 Mg/0.3 Ml Inj, 1 INJ IM ASDIRECTED PRN for ANAPHYLAXIS, (Reported) Ipratropium [place] (Ipratropium [place]) 15 Ml [place], 2 SPRAY NARES DAILY PRN for CONGESTION, (Reported) Allergies Coded Allergies: bee venom protein (honey bee) (Verified Allergy, Unknown, 05/27/19) A-FIB/CHADSVASC A-FIB History Current/History of A-Fib/PAF?: No Current PO Anticoag Therapy: No TALI MCHUGH MD Jul 13, 2019 09:18
[2019-07-13] MEDS: LR 1,000 ML IV SCH ×2 (09:34→18:01)
[2019-07-13] MEDS: amLODIPine 5 MG TAB PO SCH (10:24)
[2019-07-13] MEDS ORDERED: AMPICILLIN SOD/SULBACTAM SOD 3 GM in D5W MINI-BAG PLUS 100 ML IV ONE (11:00)
[2019-07-13] MEDS ORDERED: MIDAZOLAM INJ 2 MG/2 ML VIAL (J2250) As Ordered ONE (11:20)
[2019-07-13] MEDS ORDERED: LIDOCAINE 2% INJ 100 MG/5 ML SDV (FOR ANES.) As Ordered ONE (11:20)
[2019-07-13] MEDS ORDERED: KETOROLAC 60 MG/2 ML VIAL (J1885) As Ordered ONE (11:20)
[2019-07-13] MEDS ORDERED: ACETAMINOPHEN 1000MG 100ML IV BTL (OFIRMEV) (J0131 PER 10MG) As Ordered ONE (11:20)
[2019-07-13] MEDS ORDERED: fentaNYL 100 MCG/2 ML INJECTION (J3010) As Ordered ONE (11:20)
[2019-07-13] MEDS ORDERED: ROCURONIUM BROMIDE 50 MG/5 ML VIAL As Ordered ONE ×2 (11:20→11:52)
[2019-07-13] MEDS ORDERED: dexameTHASONE 4 MG/ML 1ML VIAL (J1100) As Ordered ONE (11:20)
[2019-07-13] MEDS ORDERED: propofoL 200 MG/20 ML VIAL As Ordered ONE (11:20)
[2019-07-13] MEDS ORDERED: HYDROmorphone HCL 2 MG/ML 1ML VIAL (J1170) As Ordered ONE (11:20)
[2019-07-13] MEDS ORDERED: ONDANSETRON 4MG/2ML VIAL (J2405) As Ordered ONE (11:20)
[2019-07-13] MEDS ORDERED: SUGAMMADEX SODIUM 500 MG/5 ML VIAL (BRIDION) As Ordered ONE (11:27)
[2019-07-13] MEDS ORDERED: ONDANSETRON 4MG/2ML VIAL (J2405) IV PRN (14:00)
[2019-07-13] MEDS ORDERED: fentaNYL 100 MCG/2 ML INJECTION (J3010) IV PRN (14:00)
[2019-07-13] MEDS ORDERED: HYDROMORPHONE HCL 0.5 MG/ 0.5 ML SYRINGE (J1170 PER 1) IV PRN (14:00)
[2019-07-13] MEDS ORDERED: oxyCODONE 5MG TAB PO PRN (14:00)
[2019-07-13] MEDS ORDERED: METOCLOPRAMIDE INJ 10MG/2ML VIAL (J2765) IV PRN (14:00)
[2019-07-13] MEDS ORDERED: LR 1,000 ML IV SCH (14:00)
[2019-07-13] MEDS: KETOROLAC 30 MG/ML VIAL (J1885) IV PRN (15:24)
[2019-07-13] MEDS: ENOXAPARIN 40 MG/0.4 ML SYRINGE (J1650) SC SCH (15:24)
[2019-07-13] MEDS: OMEPRAZOLE 20 MG CAP PO SCH (15:25)
[2019-07-13] MEDS: SERTRALINE HCL 25 MG TABLET PO SCH (15:25)
[2019-07-13] MEDS: OLMESARTAN MEDOXOMIL 20 MG TAB (BENICAR) PO SCH (15:30)
[2019-07-13] MEDS: ONDANSETRON 4MG/2ML VIAL (J2405) IV PRN ×2 (15:51→22:43)
[2019-07-14 02:00] VITALS: BP 138/89
[2019-07-14] MEDS: PERCOCET 5MG/325MG TAB PO PRN (04:18)
[2019-07-14] MEDS: LR 1,000 ML IV SCH (05:44)
[2019-07-14] MEDS: LEVOTHYROXINE 50MCG TABLET (0.05MG) PO SCH (05:47)
[2019-07-14 06:00] VITALS: BP 138/90
[2019-07-14 06:01] LABS: BASO # 0.1 10^3/uL (0.0-0.2); BASO % 0.7 % (0.0-1.0); EOS # 0.1 10^3/uL (0.0-0.5); EOS % 1.1 % (0.0-3.0); HEMATOCRIT 37.5 % (36.0-47.0); HEMOGLOBIN 11.9 g/dl (12.0-15.5); LYMPH # 2.1 10^3/uL (1.5-5.0); MEAN CORPUSCULAR HEMOGLOBIN 27.4 pg (27.0-33.0); MEAN CORPUSCULAR HGB CONC 31.7 g/dl (32.0-36.5); MEAN CORPUSCULAR VOLUME 86.2 fl (80.0-96.0); MONO # 0.9 10^3/uL (0.0-0.8); MONO % 8.4 % (0.0-5.0); NEUTROPHILS # 7.2 10^3/uL (1.5-8.5); PLATELET COUNT, AUTOMATED 292 10^3/uL (150-450); RED BLOOD COUNT 4.35 10^6/uL (4.00-5.40); WHITE BLOOD COUNT 10.6 10^3/uL (4.0-10.0)
[2019-07-14 06:27] LABS: ALBUMIN 2.7 GM/DL (3.2-5.2); ALT/SGPT 154 U/L (12-78); BILIRUBIN,TOTAL 1.3 MG/DL (0.2-1.0); BLOOD UREA NITROGEN 8 MG/DL (7-18); CALCIUM LEVEL 8.4 MG/DL (8.5-10.1); CARBON DIOXIDE LEVEL 25 MEQ/L (21-32); CHLORIDE LEVEL 108 MEQ/L (98-107); CREATININE FOR GFR 0.68 MG/DL (0.55-1.30); GLOMERULAR FILTRATION RATE > 60.0 (>58); GLUCOSE, FASTING 101 MG/DL (70-100); POTASSIUM SERUM 3.5 MEQ/L (3.5-5.1); SODIUM LEVEL 140 MEQ/L (136-145); TOTAL PROTEIN 6.4 GM/DL (6.4-8.2)
[2019-07-14 10:00] VITALS: BP 148/92
[2019-07-14] MEDS: amLODIPine 5 MG TAB PO SCH (10:00)
[2019-07-14] MEDS: OLMESARTAN MEDOXOMIL 20 MG TAB (BENICAR) PO SCH (10:00)
[2019-07-14] MEDS: SENOKOT S TAB PO SCH (10:01)
[2019-07-14] MEDS: SERTRALINE HCL 25 MG TABLET PO SCH (10:01)
[2019-07-14] MEDS: OMEPRAZOLE 20 MG CAP PO SCH (10:01)
[2019-07-14] MEDS: ENOXAPARIN 40 MG/0.4 ML SYRINGE (J1650) SC SCH (10:02)
--- NOTE | 2019-07-14 10:03 | ROOPDOC ---
[facility] Report Of Operation Report of Operation DATE OF PROCEDURE: 07/13/19 PREPROCEDURE DIAGNOSES: Cholelithiasis with abnormal LFTs, suspect transient passage of biliary stones. POSTPROCEDURE DIAGNOSES: cholelithiasis with acute cholecystitis, morbid obesity with BMI 51. PROCEDURE: Laparoscopic Cholecystectomy. SURGEON: Tali Darden MD [employer] SUPERVISOR: Chadd Haskins (MS III) ANESTHESIA: General Anesthesia. ESTIMATED BLOOD LOSS: Approximately 20 mL. COMPLICATIONS: none. PROCEDURE NOTE: Procedure is made difficult by her body habitus. She has a very thick abdominal wall also had limited abdominal insufflation thus a space was limited. She has a enlarged fatty replaced. Liver. The gallbladder is distended and has some mild wall edema. There are stones throughout the gallbladder and also at the cystic duct level.. DESCRIPTION OF PROCEDURE: Patient Unasyn 3 g IV Q6hrs for Acute Cholecystitis. She was brought to the operating room, laid supine on the table, compression boots placed for DVT prophylaxis. General endotracheal anesthesia started. Her abdomen then prepped and draped in usual sterile fashion. Surgical timeout was performed prior to starting surgery. Entry into the abdomen done through an incision at the LUQ area. A Veress needle was inserted with a controlled fashion. CO2 insufflation started to pressure 15 mmHg. Using the same incision a 5 mm Visiport was placed under direct vision laparoscope. The area underneath the insertion site was inspected and no injury found. She has a very thick abdominal wall which did not distend well and did not give us a good amountof space. Internally she also has thick omentum. The combination of this made the procedure quite difficult plus the fact that she isn't actively inflamed gallbladder. The liver appears big but overall smooth contour, moderately fatty replaced. He'll was a small amount of serous fluid perihepatic only. There is some thickening of the surrounding omentum to the gallbladder which was initially covering the gallbladder. I placed a 12 mm port at about 5 cm above the umbilicus, 2 right subcostal ports and a 5 mm epigastric port. She was then placed in steep reverse Trendelenburg. Her right side was tilted up to further expose the gallbladder. The omentum covering the gallbladder was dissected free from it with blunt dissection. Gallbladder appears markedly thickened and distended with difficulty in maintaining traction due to the degree of distention and associated inflammation. This was decompressed with a aspirating needle connected to a 60 mL syringe. The bile appears black and thickened. Due to the amount of bowel and thick omentum, the gallbladder cannot be retracted sufficiently to review the neck of the gallbladder. Thus I proceeded with a fundus down dissection. With the hook cautery, the posterior wall of the gallbladder was dissected free starting at the fundus from the liver bed and extended laterally and medially while increasing the traction of the liver and gallbladder to allow for space f or dissection. I also has another port in between my epigastric and midclavicular port and I port hop the camera between the supraumbilical midline port and the new port for adequate visualization. Once I was minimal. The body this allowed me to retract the gallbladder superiorly and with an extra port on the left upper quadrant retracting the omentum downwards I started working at the mid body and neck of the gallbladder in the usual fashion. I switched between dome down dissection and dissection of the hepatocystic triangle as well as port hop on the two camera ports to allow me to slowly define the cystic duct and cystic artery. Eventually I was able to dissect the hepatocystic triangle. I have dissected the posterior wall of the gallbladder down to the cystic duct. Once the critical view of safety. The cystic artery was clipped in between 4 hemoclips. The few remaining attachments of the posterior wall of the gallbladder at the cystic plate was dissected free. I used a PDS Endoloop to control the cystic duct as well as 3 clips above the Endoloop and the cystic duct was divided. The liver bed was examined and there seems to be a dequate hemostasis. The gallbladder was then delivered through the 11 mm port site which was partially enlarged to accommodate the size of the gallbladder. This was filled with stones. On insufflation the dissection site was inspected. The clips were in place. No bleeding nor bile leakage were noted. Given the degree of hemostasis, I did not leave a drain. The 11 mm port site was closed with 0 Vicryl using a Blu Leach device. The abdomen was deflated all ports were removed. Rest of the skin incisions closed with 4-0 Monocryl in subcuticular fashion. Steri-Strips and gauze dressings were placed, the wound. Patient was informed they awakened, extubated and brought to recovery room stable TALI DARDEN MD Jul 14, 2019 10:03
[2019-07-14] MEDS ORDERED: PERCOCET PO (11:25)
--- NOTE | 2019-07-14 11:29 | IPNPDOC ---
Text Note Date of Service The patient was seen on 07/14/19. NOTE Patient is postop day 1 following laparoscopic cholecystectomy yesterday. Pro frida was difficult were able to complete this laparoscopically. She reports feeling nauseated and threw up twice yesterday but feeling better today. Just feels tired and once distally but otherwise minimal abdominal discomfort at the incisions and she reports that her urine is finally straw-colored and not dark colored. She's been afebrile post op. Vital signs stable I/O Urine output 950 ML's Examination she was asleep when I entered, she looks comfortable and weekend. Skin is warm and dry. No signs of jaundice. Lungs sounds are clear to auscultation bilaterally. Heart regular heart rate and rhythm. Obese abdomen, no gross distention appreciated. Port site incisions 6 were covered with Dermabond without any drainage, erythema, hematoma. Minimally tender at about the midclavicular port site which is the 12 mm port site. Impression Acute cholecystitis postop day 1 after laparoscopic cholecystectomy Suspect transient passage of gallstones through the biliary tree with elevation of her liver function test. This continues to improve. Her total bilirubin is now down to 1.3, AST of 59 and ALT of 154 If she tolerates food today should be able to go home. I don't think she needs any further antibiotics. We'll send her home with intermittent Percocet use for her pain. Follow-up with me in 2 weeks. VS,Fishbone, I+O VS, Fishbone, I+O Laboratory Tests 07/14/19 05:45 Vital Signs Date Time Temp Pulse Resp B/P (MAP) Pulse Ox O2 Delivery O2 Flow Rate FiO2 07/14/19 10:00 148/92 07/14/19 06:00 98.9 83 15 97 Room Air 07/13/19 15:30 2.0 I&O- Last 24 Hours up to 6 AM 07/14/19 05:59 Intake Total 2960 ml Output Total 970 ml Balance 1990 ml TALI MCHUGH MD Jul 14, 2019 11:29
[2019-07-14] MEDS: KETOROLAC 30 MG/ML VIAL (J1885) IV PRN (11:47)
[2019-07-14 12:57] LABS: HEPATITIS B SURFACE ANTIGEN NEGATIVE (NEGATIVE)
[2019-07-14 13:25] LABS: HEPATITIS B CORE ANTIBODY IGM NEGATIVE (NEGATIVE)
[2019-07-14 13:27] LABS: HEPATITIS A ANTIBODY IGM NEGATIVE (NEGATIVE)
[2019-07-14 14:00] VITALS: BP 130/90
[2019-07-14] MEDS ORDERED: ZOFR4TAB16 PO (15:27)
--- NOTE | 2019-08-05 10:29 | DS.PDOC ---
Discharge Summary General Date of Admission Jul 12, 2019 at 17:27 Date of Discharge 07/14/2019 Attending Physician: TALI MCHUGH MD Discharge Summary PROCEDURES PERFORMED DURING STAY: Laparoscopic cholecystectomy (07/13/2019). ADMITTING DIAGNOSES: 1. Acute cholecystitis 2. Abnormal LFTs 3. Morbid obesity BMI 51. DISCHARGE DIAGNOSES: 1. Acute cholecystitis status post laparoscopic cholecystectomy 2. Abnormal LFTs improving 3. Morbid obesity BMI 51. COMPLICATIONS/CHIEF COMPLAINT: Gallstones W/Biliary Obstruction. HISTORY OF PRESENT ILLNESS: Patient presented herself to the emergency room today with complaints of on and off pain for 1 year and worsening of the epigastric and right upper quadrant pain for the past 3 days associated with nausea but no vomiting, fevers or chills. She reports that she has been having this vague sometimes sharp epigastric and right upper quadrant discomfort that comes all of a sudden may last for a few minutes to a few hours. Pattern is not exactly post prandial but he does happen with fatty meals. She was also noted by her primary doctor to have a mildly elevated LFTs back in February. She had an upper GI series done and that shows reflux. Repeat upper LFTs normalize so no other workup has been done that time. She had liver function test done on July 08 which was normal. She comes in the emergency room industry day sharp epigastric pain and was noted in the emergency room to have abnormal liver function tests including obstructed pattern of hyperbilirubinemia with her bilirubin up to 4.3 with a predominant direct fraction of 3.6 and markedly elevated AST and ALT and alkaline phosphatase. She had extensive workup in the emergency room including an ultrasound of the gallbladder showing gallstones, an MRCP that did not reveal any common bile duct stones weren't obstructed pattern in the CT abdomen and pelvis which is also normal. She subsequently admitted to me for suspicion that she has been dropping stones from her gallbladder and transiently passing them through the biliary tree. At the time that I saw her she is receive a couple doses of pain medications and she seems comfortable. She has been afebrile. HOSPITAL COURSE: Patient was admitted under my service and started on IV antibiotics. I placed her on Unasyn 3 g IV every 6 hours for the acute cholecystitis. On presentation she had a markedly elevated total bilirubin of 4.3 with a direct fraction 3.6 which is suspicious for biliary tract obstruction. I arranged for an abdominal MRI/MRCP will she was in the emergency room and this did not demonstrate any intrahepatic or extrahepatic biliary ductal dilatation or obvious choledocholithiasis. The LFTs were trended and this was going down. The following day the bilirubin dropped to 2.0. with a direct fraction of 1.4. She was brought to the operating room on the second hospital day. As expected given her body habitus the procedure turnoff very difficult but we were able to complete this laparoscopically. She does have evidence for acute cholecystitis, hepatomegaly and fatty replaced liver. Initially I was contemplating possibility of an IOC but due to the difficulty of maintaining adequate visualization of the gallbladder and biliary tract/cystic duct, I decided to forego this given the negative MRCP. She tolerated the procedure well and was started on clear liquids postoperatively her LFTs continued to come down with the total bilirubin down to 1.3 on postop day 1. She was advanced to regular food which she tolerated and she appears to be doing well and subsequently was discharged home without antibiotics. DISCHARGE MEDICATIONS: Please see below. ALLERGIES: Please see below. PHYSICAL EXAMINATION ON DISCHARGE: VITAL SIGNS: Please see below. Refer to progress notes on 07/14/2019 LABORATORY DATA: Please see below. IMAGING: Gallbladder ultrasound, CT abdomen and pelvis, MRI/MRCP of the abdomen PROGNOSIS: Good ACTIVITY: Light activity 2 weeks. DIET: Low-fat diet DISCHARGE PLAN: Patient is discharged home. She does not need any further antibiotics she has had cholecystectomy already. She was discharged home on when necessary oxycodone and as needed ondansetron for nausea DISPOSITION: 01 Home, Self-Care. DISCHARGE INSTRUCTIONS: 1. As above 2. Follow-up with me in 2 weeks' time.. ITEMS TO FOLLOWUP ON ON OUTPATIENT: 1. Pathology review. DISCHARGE CONDITION: Stable. TIME SPENT ON DISCHARGE: Greater than 45 minutes. Discharge Medications Scheduled Amlodipine Besylate (Amlodipine Besylate) 5 Mg Tablet, 5 MG PO DAILY, (Reported) Levothyroxine Sodium (Levothyroxine Sodium) 50 Mcg Tab, 50 MCG PO DAILY, (Reported) Olmesartan Medoxomil (Benicar) 40 Mg Tab, 40 MG PO DAILY, (Reported) Omeprazole (Omeprazole) 20 Mg Capsule.dr, 20 MG PO DAILY, (Reported) Sertraline Hcl (Zoloft) 50 Mg Tablet, 50 MG PO DAILY, (Reported) TAKEN WITH 25MG TAB. TOTAL OF 75MG Sertraline Hcl (Sertraline HCl) 25 Mg Tablet, 25 MG PO DAILY, (Reported) TAKEN WITH 50MG TAB. TOTAL OF 75MG Scheduled PRN Epinephrine (Epinephrine) 0.3 Mg/0.3 Ml Inj, 1 INJ IM ASDIRECTED PRN for ANAPHYLAXIS, (Reported) Ipratropium Euless (Ipratropium Euless) 15 Ml Horse Shoe, 2 SPRAY NARES DAILY PRN for CONGESTION, (Reported) Ondansetron HCl (Zofran) 4 Mg Tablet, 1 TAB PO Q6-8HP PRN for nausea/vomiting Oxycodone/Acetaminophen (Oxycodone-Acetaminophen 5-325) 1 Each Tablet, 1-2 TAB PO Q4H PRN for MILD/MODERATE PAIN (PS 1-7) Allergies Coded Allergies: bee venom protein (honey bee) (Verified Allergy, Unknown, 05/27/19) TALI MCHUGH MD Aug 05, 2019 10:29
== END 2019-07-14 16:40 | disposition home or self-care (01) | DRG 418 ==
LOC: M ED 08:12 → M ED INP 17:27 → ENRESERV 18:22 → M MSPAV 19:41
PROVIDERS: ADMIT Surgery; ATTEND Surgery
PROC: 0FT44ZZ Resection of Gallbladder, Percutaneous Endoscopic Approach (ICD-10-PCS; principal; 2019-07-13 11:00)
DX: K80.01 Calculus of gallbladder with acute cholecystitis with obstruction (principal); Z68.43 Body mass index [BMI] 50.0-59.9, adult; E66.01 Morbid (severe) obesity due to excess calories; I10 Essential (primary) hypertension; J45.909 Unspecified asthma, uncomplicated; K21.9 Gastro-esophageal reflux disease without esophagitis; R11.2 Nausea with vomiting, unspecified; E03.9 Hypothyroidism, unspecified; F41.9 Anxiety disorder, unspecified; Z91.030 Bee allergy status; Z79.899 Other long term (current) drug therapy

== ENCOUNTER → 2020-08-27 | Outpatient (REF) | payer OTHER, MEDICAID ==
[~2020-08-27] MED LIST changes: +AMLO1TAB24 PO; -AMLO5TAB6 PO; +IPRA6SP NARES; +OMEP-218 PO; +SERT25TA85 PO; +ZOFR4TAB16 PO
[2020-08-27 12:29] LABS: ALBUMIN 3.5 GM/DL (3.2-5.2); ALT/SGPT 16 U/L (12-78); BILIRUBIN,TOTAL 0.2 MG/DL (0.2-1.0); BLOOD UREA NITROGEN 12 MG/DL (7-18); CALCIUM LEVEL 8.7 MG/DL (8.5-10.1); CARBON DIOXIDE LEVEL 25 MEQ/L (21-32); CHLORIDE LEVEL 110 MEQ/L (98-107); CHOLESTEROL LEVEL 201 MG/DL (<200); CHOLESTEROL RISK RATIO 3.865 (<5); CREATININE FOR GFR 0.74 MG/DL (0.55-1.30); GLOMERULAR FILTRATION RATE > 60.0 (>58); GLUCOSE, FASTING 111 MG/DL (70-100); HDL CHOLESTEROL 52 MG/DL (>40); LDL CHOLESTEROL 120 MG/DL (<100); NON-HDL-C 149 MG/DL; POTASSIUM SERUM 4.2 MEQ/L (3.5-5.1); SODIUM LEVEL 141 MEQ/L (136-145); TOTAL PROTEIN 6.7 GM/DL (6.4-8.2); TRIGLYCERIDES LEVEL 143 MG/DL (<150)
== END ==
LOC: M LAB REF 11:22
PROVIDERS: ATTEND Family Medicine Addiction Medicine
DX: I10 Essential (primary) hypertension (principal)